=== PATIENT | male | born 1960 | race Caucasian/White ===

== ENCOUNTER → 2019-05-06 | Outpatient (CLI) | payer BC ==
--- NOTE | 2019-05-06 12:05 | KCIC ---
EXAM: CT right shoulder DATE: 05/06/2019 8:30 AM COMPARISON: No prior INDICATION: Chronic right shoulder pain TECHNIQUE: CT of the right shoulder was performed without IV contrast. PQRS compliance statement - One or more of the following individualized dose reduction techniques were utilized for this study: 1. Automated exposure control 2. Adjustment of the mA and/or kV according to patient size 3. Use of iterative reconstruction technique FINDINGS: There is severe glenohumeral joint space loss. There is subchondral sclerosis and cystic change. Bulky osteophytosis is present. Small glenohumeral joint effusion. Flattening of the normal glenoid concavity. No definite osteochondral bodies. The humerus is mildly high riding. Negative asymmetric atrophy of the rotator muscles. Negative acute fracture or dislocation. There is acromioclavicular osteoarthritis. There is remodeling of the glenoid, with mild retroversion. Longitudinal bone stock of the glenoid measures approximately 3.5 cm superiorly, 2.3 centrally, and 2.9 cm inferiorly. Advanced emphysematous change right lung. Multiple right lung nodules are partially profiled. For example a 4 mm right upper lobe lung nodule (series 604 image 38) is seen. A 7 mm right likely middle lobe lung nodule (series 3 image 250) is also seen. IMPRESSION: Severe right glenohumeral osteoarthritis with glenoid bone stock as described. Advanced bilateral emphysematous changes are seen. Right-sided lung nodules are seen measuring 4-7 mm. This can be further evaluated with dedicated CT chest. Electronically signed by: Reynaldo Jauregui MD (05/06/2019 12:02 PM) [id number]
== END | disposition home or self-care (01) ==
LOC: KCIC CT 08:19
PROVIDERS: ATTEND Orthopaedic Surgery
DX: M19.011 Primary osteoarthritis, right shoulder (principal); M25.411 Effusion, right shoulder; J43.9 Emphysema, unspecified; R91.8 Other nonspecific abnormal finding of lung field; G89.29 Other chronic pain
CPT/HCPCS: 73200